=== PATIENT | female | born 1945 | race Caucasian/White ===

== ENCOUNTER 2017-05-19 19:18 | Emergency (ER) | payer MEDICARE, OTHER ==
[2017-05-19 19:51] LABS: BASOPHIL# 0.1 X 10^3uL (0.0-0.1); BASOPHILS 0.8 % (0.0-2.0); EOSINOPHILS 4.4 % (0.0-6.0); EOSINOPHILS# 0.4 X 10^3uL (0.0-0.4); HEMATOCRIT 45.8 % (36.0-48.0); HEMOGLOBIN 16.1 g/dL (12.0-16.0); LYMPHOCYTES 32.2 % (20.0-40.0); LYMPHOCYTES# 2.6 X 10^3uL (0.8-3.8); MEAN CELL VOLUME 83.3 fL (80.0-100.0); MEAN CORPUS. HGB CONCENTRATION 35.3 g/dL (32.0-36.0); MEAN CORPUSCULAR HEMOGLOBIN 29.4 pg (29.0-35.0); MEAN PLATELET VOLUME 8.2 fL (7.4-10.4); MONOCYTES 9.3 % (2.0-10.0); MONOCYTES# 0.7 X 10^3uL (0.2-1.0); NEUTROPHILS 53.3 % (54.0-75.0); NEUTROPHILS# 4.2 X 10^3uL (2.6-6.7); PLATELET COUNT 226 X 10^3uL (130-440); RED BLOOD COUNT 5.49 X 10^6uL (4.20-6.10)
[2017-05-19 20:00] LABS: BLOOD UREA NITROGEN 17 mg/dL (7-17); CALCIUM 9.5 mg/dL (8.4-10.2); CHLORIDE 107 mmol/L (98-107); EST GLOMERULAR FILTRATION RATE > 60 mL/min; GLUCOSE 105 mg/dL (70-100); POTASSIUM 4.4 mmol/L (3.5-5.1); SODIUM 140 mmol/L (137-145)
--- NOTE | 2017-05-19 20:17 | CT REPORT ---
HISTORY: Double vision, headache COMPARISON: None. TECHNIQUE: Axial non-contrast images obtained from skull vertex through foramen magnum. Dose reduction technique was utilized. FINDINGS: BRAIN: There is no atrophy. No acute intracranial hemorrhage. No mass effect or hydrocephalus. There is n o CT evidence of infarction. BONES AND EXTRACRANIAL SOFT TISSUES: The orbits are unremarkable. The paranasal sinuses and mastoid air cells are clear. The calvarium is intact. IMPRESSION: Normal head CT. Final Electronic Signature: This report was electronically signed by Roberto Angeles MD on 05/19/2017 8:15 PM. kellie /
[2017-05-19] MEDS ORDERED: KETOROLAC TROMETHAMINE 30 MG/ML VIAL ONE (20:32)
[2017-05-19] MEDS ORDERED: NORMAL SALINE 500 ML IV ONE (20:32)
[2017-05-19] MEDS ORDERED: ONDANSETRON HCL 4 MG/2 ML VIAL ONE (20:32)
--- NOTE | 2017-05-19 20:59 | ER NURSING DOCUMENTATION ---
Nurse's Notes [facility] Name:Fatoumata Teague Age:71 yrs Sex:Female :1945 Arrival Date:05/19/2017 Time:19:18 BedTrauma-A Private MD:Rick Campoverde Diagnosis:Migraine, with Aura, w/o Intractable Migraine/Status Migrainosus Presentation: 05/19 19:20 Acuity: COREY 2 sc1 19:24 Presenting complaint: Patient states: blurry double vision started at 3:30 pm, states lb had aura, pressure like headache. also has numbness to right foot. speech clear. Transition of care: Home. Time Last Known Well for patient was 3:30 pm today. Notified ED Physician of Dr. Hays notified. 19:24 Method Of Arrival: Wheelchair lb 19:59 No acute neurological deficit is noted. Pre-hospital glucose is not applicable to this lb patient. Triage Assessment: 19:33 The onset of the patients symptoms was more than three but less than six hours ago. lb General: Appears in no apparent distress, Behavior is anxious, pleasant. Pain: Complains of pain in face Pain does not radiate. Pain currently is 5 out of 10 on a pain scale. Quality of pain is described as pressure. EENT: Neuro: Level of Consciousness is awake, alert, Oriented to person, place, time, event, Weights And Measures Inspector are equal bilaterally Moves all extremities. Gait is steady, Speech is normal, Facial symmetry appears normal, Pupils are PERRLA, Numbness in right foot Reports blurred vision headache. Historical: - Allergies: PENICILLINS; - Home Meds: 1. citalopram oral 2. Trazodone Oral 3. Seroquel Oral 4. BuSpar Oral 5. Lipitor Oral - PMHx: HIGH CHOLESTEROL; follicular lymphoma; - PSHx: Hip surgery; HERNIA REPAIR; COLOSTOMY; - Tetanus: < 10 years. - Ebola Screening: : Patient denies exposure to infectious person. Patient denies travel to an Ebola-affected area in the 21 days before illness onset. . - Immunization history: Flu Vaccine < 1 year. - Social history: Smoking status: Patient states was never smoker of tobacco. Patient uses alcohol occasionally. Screenin:41 Infectious Disease Risk None. Abuse screen: Denies threats or abuse. Denies injuries lb from another. Nutritional screening: No deficits noted. Assessment: 19:35 See Triage Assessment done by same RN. lb 20:57 Reassessment: 2000 Per MD discretion pt is not a stroke activation. lb Vital Signs: 19:35 BP 150 / 76; Pulse 95; Resp 18; Temp 98(O); Pulse Ox 92% on R/A; Weight 79.38 kg; lb Height 5 ft. 6 in. (167.64 cm); Pain 5/10; 20:57 BP 155 / 79; Pulse 87; Resp 15; Pulse Ox 93% on R/A; Pain 0/10; lb 19:35 Body Mass Index 28.25 (79.38 kg, 167.64 cm) lb Yessi Coma Score: 20:09 Eye Response: spontaneous(4). Verbal Response: oriented(5). Motor Response: obeys sc commands(6). Total: 15. NIH Stroke Scale Scores: 19:26 NIHSS Score: 0 lb 19:35 NIHSS Score: 0 lb ED Course: 19:19 Patient arrived in ED. ma1 19:19 Rick Campoverde is Private Physician. ma1 19:20 Triage completed. sc1 19:23 EKG done. (by ED staff). mk2 19:24 Saloni Reynoso is Primary Nurse. lb 19:27 Inserted peripheral IV: saline lock: 20 gauge in left antecubital area and blood jt collected. 19:30 Valuables Remains with patient. sheet metal assembler and riveter on. Pulse ox on. NIBP on. mk2 19:31 Jose Hays MD is Attending Physician. id 19:31 EKG attached sc1 19:[address] Hays notified. lb 19:[address] mr 20:[address] back [address]. mr 20:14 Rick Campoverde is Referral Physician. sc Administered Medications: 20:23 Drug: NS 0.9% 500 ml; Route: IV; Rate: bolus; Site: left antecubital; lb 20:56 Follow up: IV Status: Completed infusion; IV Intake: 500ml lb 20:23 Drug: Toradol 15 mg; Route: IVP; Site: left antecubital; lb 20:56 Follow up: Response: Pain is decreased lb 20:23 Drug: Zofran 4 mg; Route: IVP; Infused Over: 2 mins; Site: left antecubital; lb 20:56 Follow up: Response: Nausea is decreased lb Point of Care Testing: Blood Glucose: 19:35 Blood Glucose: 102 mg/dL; lb Ranges: Intake: 20:56 PO: 200ml (Water); IV: 500ml (NS); Total: 700ml. lb 20:56 IV: 500ml; Total: 1200ml. lb Outcome: 20:15 Discharge ordered by . id 20:57 Discharged to home ambulatory. lb 20:57 Condition: good 20:57 Discharge Assessment: Patient awake, alert and oriented x 3. No cognitive and/or functional deficits noted. Patient verbalized understanding of disposition instructions. 20:57 Instructed on discharge instructions. 20:57 IV D/Hugh 20:58 Patient left the ED. NIH Stroke Scale - NIH Stroke Score Date: 05/19/2017 Time: 19:26 Total Score = 0 1a. Level of Consciousness (LOC) - 0(Alert) 1b. Level of Consciousness (LOC) (Year & Age) - 0(Both) 1c. LOC Commands (Open & Closes Eyes/Passport Application Examiner) - 0(Both) 2. Best Gaze (Lateral Gaze Paresis) - 0(Normal) 3. Visual Field Loss - 0(No visual loss) 4. Facial Palsy - 0(Normal) 5a. Left Arm: Motor (10-second hold) - 0(No drift) 5b. Right Arm: Motor (10-second hold) - 0(No drift) 6a. Left Leg: Motor (5-second hold ? always test supine) - 0(No drift) 6b. Right Leg: Motor (5-second hold ? always test supine) - 0(No drift) 7. Limb Ataxia (finger/nose & heel/gray ? test with eyes open) - 0(Absent) 8. Sensory Loss (pinprick arms/legs/face) - 0(Normal) 9. Best Language: Aphasia (description/naming/reading) - 0(No aphasia) 10. Dysarthria (speech clarity ? read or repeat words) - 0(Normal) 11. Extinction and Inattention (visual/tactile/auditory/spatial/personal) - 0(No abnormality) Initials: NIH Stroke Scale - NIH Stroke Score Date: 05/19/2017 Time: 19:35 Total Score = 0 1a. Level of Consciousness (LOC) - 0(Alert) 1b. Level of Consciousness (LOC) (Year & Age) - 0(Both) 1c. LOC Commands (Open & Closes Eyes/Passport Application Examiner) - 0(Both) 2. Best Gaze (Lateral Gaze Paresis) - 0(Normal) 3. Visual Field Loss - 0(No visual loss) 4. Facial Palsy - 0(Normal) 5a. Left Arm: Motor (10-second hold) - 0(No drift) 5b. Right Arm: Motor (10-second hold) - 0(No drift) 6a. Left Leg: Motor (5-second hold ? always test supine) - 0(No drift) 6b. Right Leg: Motor (5-second hold ? always test supine) - 0(No drift) 7. Limb Ataxia (finger/nose & heel/gray ? test with eyes open) - 0(Absent) 8. Sensory Loss (pinprick arms/legs/face) - 0(Normal) 9. Best Language: Aphasia (description/naming/reading) - 0(No aphasia) 10. Dysarthria (speech clarity ? read or repeat words) - 0(Normal) 11. Extinction and Inattention (visual/tactile/auditory/spatial/personal) - 0(No abnormality) Initials: lb Signatures: Yasemin Landrum, RN RN sc1 Jose Hays MD MD sc Marisabel Malave RN RN mk2 Avis Sprague Lynda lb Addison, Melissa ma1 Rivera, Michael mr
--- NOTE | 2017-05-19 20:59 | ER PHYSICIAN DOCUMENTATION ---
Physician Documentation [facility] Name:Fatoumata Teague Age:71 yrs Sex:Female :1945 Arrival Date:05/19/2017 Time:19:18 BedTrauma-A Private MD:Rick Campoverde ED, Scott Disposition: 05/19/17 20:15 Discharged to Home/Self Care. Impression: Migraine, with Aura, w/o Intractable Migraine/Status Migrainosus. - Condition is Good. - Discharge Instructions: Complicated Migraine - HEADACHE, Unspecified. - Medical Reconciliation form form. - Follow up: Rick Campoverde; When: 1 week; Reason: Recheck today's complaints. - Problem is new. - Symptoms are resolved. HPI: 05/19 20:05 This 71 yrs old Female presents to ER via Wheelchair with complaints of S/S sc of Possible Stroke. 20:05 The patient complains of pain to the forehead. The patient describes the headache as sc aching. Onset: The symptoms/episode began/occurred at 15:30. Associated signs and symptoms: Pertinent positives: blurred vision, and wavy line aura. Severity of symptoms: At its worst the pain was mild, in the emergency department the pain is unchanged. Headache History: Other previous neurology referral with diagnosis of complex migraine. Risk factors for subarachnoid hemhorrage: no risk factors present. The patient has experienced similar episodes in the past, a few times. Historical: - Allergies: PENICILLINS; - Home Meds: 1. citalopram oral 2. Trazodone Oral 3. Seroquel Oral 4. BuSpar Oral 5. Lipitor Oral - PMHx: HIGH CHOLESTEROL; follicular lymphoma; - PSHx: Hip surgery; HERNIA REPAIR; COLOSTOMY; - Tetanus: < 10 years. - Ebola Screening: : Patient denies exposure to infectious person. Patient denies travel to an Ebola-affected area in the 21 days before illness onset. . - Immunization history: Flu Vaccine < 1 year. - Social history: Smoking status: Patient states was never smoker of tobacco. Patient uses alcohol occasionally. ROS: 20:07 Constitutional: Negative for fever, chills, and weight loss. sc Eyes: Negative for injury, pain, redness, and discharge. ENT: Negative for injury, pain, and discharge. Neck: Negative for injury, pain, and swelling. Cardiovascular: Negative for chest pain, palpitations, and edema. Respiratory: Negative for shortness of breath, cough, wheezing, and pleuritic chest pain. Abdomen/GI: Negative for abdominal pain, nausea, vomiting, diarrhea, and constipation. Back: Negative for injury and pain. MS/Extremity: Negative for injury and deformity. 20:07 Skin: Negative for injury, rash, and discoloration. sc 20:07 Neuro: Positive for headache. 20:07 Psych: Positive for anxiety, tearful. Exam: Constitutional: This is a well developed, well nourished patient who is awake, alert, and in no acute distress. Head/Face: Normocephalic, atraumatic. Eyes: Pupils equal round and reactive to light, extra-ocular motions intact. Lids and lashes normal. Conjunctiva and sclera are non-icteric and not injected. Cornea within normal limits. Periorbital areas with no swelling, redness, or edema. ENT: Nares patent. No nasal discharge, no septal abnormalities noted. Tympanic membranes are normal and external auditory canals are clear. Oropharynx with no redness, swelling, or masses, exudates, or evidence of obstruction, uvula midline. Mucous membranes moist. Neck: Trachea midline, no thyromegaly or masses palpated, and no cervical lymphadenopathy. Supple, full range of motion without nuchal rigidity, or vertebral point tenderness. No meningismus. Chest/axilla: Normal chest wall appearance and motion. Nontender with no deformity. No lesions are appreciated. Cardiovascular: Regular rate and rhythm with a normal S1 and S2. No gallops, murmurs, or rubs. Normal PMI, no JVD. No pulse deficits. Respiratory: Lungs have equal breath sounds bilaterally, clear to auscultation and percussion. No rales, rhonchi or wheezes noted. No increased work of breathing, no retractions or nasal flaring. Abdomen/GI: Soft, non-tender, with normal bowel sounds. No distension or tympany. No guarding or rebound. No evidence of tenderness throughout. Back: No spinal tenderness. No costovertebral tenderness. Full range of motion. Skin: Warm, dry with normal turgor. Normal color with no rashes, no lesions, and no evidence of cellulitis. MS/ Extremity: Pulses equal, no cyanosis. Neurovascular intact. Full, normal range of motion, negative Homans's, calves equal bilaterally. 20:08 Neuro: Awake and alert, GCS 15, oriented to person, place, time, and situation. sc Cranial nerves II-XII grossly intact. Motor strength 5/5 in all extremities. Sensory grossly intact. Cerebellar exam normal. Normal gait. 20:08 Eyes: Pupils: equal, round, and reactive to light and accomodation, Extraocular movements: intact throughout, Conjunctiva: normal, Anterior chamber: normal, Visual ovalle: are intact. 20:08 Neuro: Orientation: is normal, Gait: is steady. 20:08 Psych: Behavior/mood is anxious, Affect is calm, Oriented to person, place, time. Vital Signs: 19:35 BP 150 / 76; Pulse 95; Resp 18; Temp 98(O); Pulse Ox 92% on R/A; Weight 79.38 kg; lb Height 5 ft. 6 in. (167.64 cm); Pain 5/10; 20:57 BP 155 / 79; Pulse 87; Resp 15; Pulse Ox 93% on R/A; Pain 0/10; lb 19:35 Body Mass Index 28.25 (79.38 kg, 167.64 cm) lb NIH Stroke Scale Scores: 19:26 NIHSS Score: 0 lb 19:35 NIHSS Score: 0 lb [place] Coma Score: 20:09 Eye Response: spontaneous(4). Verbal Response: oriented(5). Motor Response: obeys ok commands(6). Total: 15. MDM: 19:31 Patient medically screened. ok 19:31 EKG attached sc1 20:09 Differential diagnosis: cerebral vascular accident, migraine, vasomotor headache. ok Neurological re-evaluation: normal neurological exam including cranial nerves, orientation, mentation, motor and sensory exam, cerebellar testing, GCS normal, and normal gait. Data reviewed: vital signs, nurses notes, lab test result(s), EKG, radiologic studies, and as a result, I will continue to observe the patient. Counseling: I had a detailed discussion with the patient and/or guardian regarding: the historical points, exam findings, and any diagnostic results supporting the discharge/admit diagnosis, lab results, radiology results, the need for outpatient follow up, for a referral to a specialist. ECG:. 05/19 19:57 Order name: CBC AUTO DIF, MDIF/RMOR IF IND; Complete Time: 20:10 EDMS 05/19 20:01 Order name: BASIC METABOLIC PANEL; Complete Time: 20:10 EDMS 05/19 20:04 Order name: PROTIME/INR; Complete Time: 20:10 EDMS 05/19 20:20 Order name: CAT SCAN; HEAD W/O CON [id number]; Complete Time: 20:28 EDMS 05/19 20:28 Interpretation: Normal. sc 05/19 19:32 Order name: 12-lead EKG; Complete Time: 19:49 ok EC:09 Rate is 80 beats/min. Rhythm is regular. QRS [place] is Normal. [place] interval is normal. QRS sc interval is normal. QT interval is normal. No Q waves. T waves are Normal. No ST changes noted. Clinical impression: Normal ECG. Interpreted by me. Reviewed by me. Dispensed Medications: 20:23 Drug: NS 0.9% 500 ml; Route: IV; Rate: bolus; Site: left antecubital; lb 20:56 Follow up: IV Status: Completed infusion; IV Intake: 500ml lb 20:23 Drug: Toradol 15 mg; Route: IVP; Site: left antecubital; lb 20:56 Follow up: Response: Pain is decreased lb 20:23 Drug: Zofran 4 mg; Route: IVP; Infused Over: 2 mins; Site: left antecubital; lb 20:56 Follow up: Response: Nausea is decreased lb Point of Care Testing: Blood Glucose: 19:35 Blood Glucose: 102 mg/dL; lb Ranges: Critical Glucose Levels:Adult <50 mg/dl or >400 mg/dl <40 mg/dl or >180 mg/dl NIH Stroke Scale - NIH Stroke Score Date: 05/19/2017 Time: 19:26 Total Score = 0 1a. Level of Consciousness (LOC) - 0(Alert) 1b. Level of Consciousness (LOC) (Year & Age) - 0(Both) 1c. LOC Commands (Open & Closes Eyes/Rail Car Maintenance Mechanic) - 0(Both) 2. Best Gaze (Lateral Gaze Paresis) - 0(Normal) 3. Visual Field Loss - 0(No visual loss) 4. Facial Palsy - 0(Normal) 5a. Left Arm: Motor (10-second hold) - 0(No drift) 5b. Right Arm: Motor (10-second hold) - 0(No drift) 6a. Left Leg: Motor (5-second hold ? always test supine) - 0(No drift) 6b. Right Leg: Motor (5-second hold ? always test supine) - 0(No drift) 7. Limb Ataxia (finger/nose & heel/gray ? test with eyes open) - 0(Absent) 8. Sensory Loss (pinprick arms/legs/face) - 0(Normal) 9. Best Language: Aphasia (description/naming/reading) - 0(No aphasia) 10. Dysarthria (speech clarity ? read or repeat words) - 0(Normal) 11. Extinction and Inattention (visual/tactile/auditory/spatial/personal) - 0(No abnormality) Initials: zena NIH Stroke Scale - NIH Stroke Score Date: 05/19/2017 Time: 19:35 Total Score = 0 1a. Level of Consciousness (LOC) - 0(Alert) 1b. Level of Consciousness (LOC) (Year & Age) - 0(Both) 1c. LOC Commands (Open & Closes Eyes/Rail Car Maintenance Mechanic) - 0(Both) 2. Best Gaze (Lateral Gaze Paresis) - 0(Normal) 3. Visual Field Loss - 0(No visual loss) 4. Facial Palsy - 0(Normal) 5a. Left Arm: Motor (10-second hold) - 0(No drift) 5b. Right Arm: Motor (10-second hold) - 0(No drift) 6a. Left Leg: Motor (5-second hold ? always test supine) - 0(No drift) 6b. Right Leg: Motor (5-second hold ? always test supine) - 0(No drift) 7. Limb Ataxia (finger/nose & heel/gray ? test with eyes open) - 0(Absent) 8. Sensory Loss (pinprick arms/legs/face) - 0(Normal) 9. Best Language: Aphasia (description/naming/reading) - 0(No aphasia) 10. Dysarthria (speech clarity ? read or repeat words) - 0(Normal) 11. Extinction and Inattention (visual/tactile/auditory/spatial/personal) - 0(No abnormality) Initials: zena Signatures: Yasemin Landrum RN RN [facility] Jose Hays MD MD sc Bollock, Lynda lb
== END 2017-05-19 20:59 | disposition home or self-care (01) ==
LOC: ER 19:18
DX: G43.109 Migraine with aura, not intractable, without status migrainosus (principal); R29.700 NIHSS score 0; E78.00 Pure hypercholesterolemia, unspecified; Z79.899 Other long term (current) drug therapy
CPT/HCPCS: 70450; 80048; 85025; 85610; 93005; 93010; 96361; 96374; 96375; 99285; J1885; J2405; J7040